=== PATIENT | female | born 1980 | race Caucasian/White ===

== ENCOUNTER → 2017-05-08 | Outpatient (CLI) | payer SELFPAY ==
[~2017-05-08] MED LIST: NEXIUM20 MG PO; NORCO 5/3251 TABLET PO; ULTRAM50 MG PO; ZOLOFT50 MG PO
== END | disposition home or self-care (01) ==
LOC: RAD 10:22
DX: S83.512A Sprain of anterior cruciate ligament of left knee, initial encounter (principal); M17.12 Unilateral primary osteoarthritis, left knee
CPT/HCPCS: 73560

== ENCOUNTER → 2017-12-26 | Outpatient (CLI) | payer SELFPAY | END | disposition home or self-care (01) | LOC: EKG 14:00 | DX: I05.1 Rheumatic mitral insufficiency (principal); I07.1 Rheumatic tricuspid insufficiency; R01.1 Cardiac murmur, unspecified | CPT/HCPCS: 93306 ==